=== PATIENT | female | born 1975 | race Caucasian/White ===

== ENCOUNTER 2018-03-27 15:11 | Emergency (ER) | payer MEDICAID ==
[~2018-03-27] VITALS: Ht 167.6 cm; Wt 83.9 kg
[2018-03-27 15:33] VITALS: BP 120/84
== END 2018-03-27 15:45 | disposition short-term general hospital (02) ==
LOC: EMS 15:13
DX: I63.9 Cerebral infarction, unspecified (principal); R29.810 Facial weakness; R65.10 Systemic inflammatory response syndrome (SIRS) of non-infectious origin without acute organ dysfunction
CPT/HCPCS: 93005; 99291